=== PATIENT | female | born 1990 | race Two or more races ===

== ENCOUNTER → 2022-06-07 | Outpatient (CLI) | payer OTHER | END | disposition home or self-care (01) | LOC: NST 20:27 | PROVIDERS: ATTEND Obstetrics & Gynecology | DX: Z34.83 Encounter for supervision of other normal pregnancy, third trimester (principal) ==

== ENCOUNTER 2022-06-18 14:15 | Inpatient (IN) | payer OTHER ==
[~2022-06-18] VITALS: Ht 154.9 cm; Wt 73.9 kg
[2022-06-25] MEDS ORDERED: PRENATAL TABLE1 EAC6 PO (18:36)
[2022-06-25] MEDS ORDERED: SYNTHROID100 MCG PO (18:36)
== END 2022-06-28 13:25 | disposition home or self-care (01) | DRG 788 ==
LOC: EDBD 14:15 → EDUNIT# 14:15 → EDSTATUS 14:15 → LDR 06-25 17:16 → O/R 06-25 17:16 → SURH 06-25 17:16 → LDR 06-26 14:03 → O/R 06-26 14:03 → OB/GYN 06-26 14:54 → O/R 06-26 14:54 → OB/GYN 06-26 14:54 → LDR 06-26 15:33 → O/R 06-26 15:33 → OB/GYN 06-28 13:25 → SURH 07-01 14:15
PROVIDERS: ADMIT Obstetrics & Gynecology; ATTEND Obstetrics & Gynecology
PROC: 3E033VJ Introduction of Other Hormone into Peripheral Vein, Percutaneous Approach (ICD-10-PCS; 2022-06-26)
PROC: 3E0P7VZ Introduction of Hormone into Female Reproductive, Via Natural or Artificial Opening (ICD-10-PCS; 2022-06-26)
PROC: 4A1HXCZ Monitoring of Products of Conception, Cardiac Rate, External Approach (ICD-10-PCS; 2022-06-26)
PROC: 10D00Z1 Extraction of Products of Conception, Low, Open Approach (ICD-10-PCS; principal; 2022-06-26 15:00)
DX: O61.0 Failed medical induction of labor (principal); O36.8130 Decreased fetal movements, third trimester, not applicable or unspecified; Z3A.39 39 weeks gestation of pregnancy; Z37.0 Single live birth; Z20.822 Contact with and (suspected) exposure to COVID-19